=== PATIENT | female | born 1975 | race African-American/Black ===

== ENCOUNTER 2017-04-29 09:25 | Emergency (ER) | payer MEDICAID, OTHER ==
[~2017-04-29] VITALS: Ht 175.3 cm; Wt 79.5 kg
[~2017-04-29 09:25] MED LIST: ACCUMIS15; ASPI81TA45 PO; BLOOKIT5; CITA20TA4 PO; DEPO150I IM; ENSULIQ8; FERR324T4 PO; GLUCLIQ PO; GLUCOMETER XX; GLUCOMTESTSTRIPS XX; HYDR-3533 PO; HYDR1CAP30 PO; IBUP800 PO; INSULINSYR2 XX; LANTUS2P SQ; LISI-363 PO; MOBI15TA PO; MULT-65 PO; NOVORP2 SQ; PRAV20 PO; PROT40TA PO; SERO100T PO; XANA0.5T PO
[2017-04-29 09:41] VITALS: BP 149/104; PULSE 100; RESP 24; TEMP 98.3; O2SAT 100
[2017-04-29] MEDS ORDERED: LISI-515 PO (10:09)
[2017-04-29] MEDS ORDERED: VITA100036 PO (10:09)
[2017-04-29] MEDS ORDERED: PROT40TA PO (10:09)
[2017-04-29] MEDS ORDERED: LANTUS2P SQ (10:09)
[2017-04-29] MEDS ORDERED: GABA800T PO (10:09)
[2017-04-29] MEDS ORDERED: NOVORP2 SQ (10:09)
[2017-04-29] MEDS ORDERED: SERO100T PO (10:09)
[2017-04-29] MEDS ORDERED: LURA20TA PO (10:09)
[2017-04-29] MEDS ORDERED: SODIUM CHLOR 0.9% 1000 ML INJ 1,000 ML IV ONE ×2 (10:11→10:41)
[2017-04-29] MEDS ORDERED: INSULIN HUMAN REGULAR 1,000 UNITS/10 ML VIAL IV PUSH ONE (10:15)
[2017-04-29] MEDS ORDERED: ONDANSETRON HCL 4 MG/2 ML VIAL IV PUSH ONE (10:15)
[2017-04-29] MEDS ORDERED: SODIUM CHLORIDE 0.9% FLUSH 10 ML FLUSH IVF PRN (10:15)
[2017-04-29 10:26] LABS: BLOOD GAS VENOUS BASE EXCESS 2.4 mmol/L (-2-2); BLOOD GAS VENOUS HCO3 26 mmol/L (22-26); BLOOD GAS VENOUS O2 CONTENT 13.5 Vol % (9.0-17.0); BLOOD GAS VENOUS O2 HGB SAT 68 % (70-76); BLOOD GAS VENOUS PCO2 37 mmHg (44-48); BLOOD GAS VENOUS PO2 34 mmHg (35-40); BLOOD GAS VENOUS pH 7.46 (7.360-7.400); CRITICAL VALUE NO; DRAW SITE IV; FIO2 21 %; OXYGEN DEVICE RA; STAT YES; TEMP CORR TO 98.6
[2017-04-29 10:39] VITALS: O2SAT 98
[2017-04-29 10:46] LABS: AUTOMATED NEUTROPHIL # 7.1 TH/MM3 (1.8-7.7); BASOPHIL # 0.1 TH/MM3 (0-0.2); BASOPHIL % 0.6 % (0.0-2.0); EOSINOPHIL # 0.2 TH/MM3 (0-0.4); EOSINOPHIL % 1.5 % (0.0-4.0); HEMATOCRIT 44.3 % (35.0-46.0); HEMO FLAGS DIFF FINAL; LYMPH % 27.5 % (9.0-44.0); LYMPHOCYTE # 3.1 TH/MM3 (1.0-4.8); MEAN CELL VOLUME 92.1 FL (80.0-100.0); MEAN CORPUSCULAR HEMOGLOBIN 30.3 PG (27.0-34.0); NEUT % 62.4 % (16.0-70.0); PLATELET COUNT 371 TH/MM3 (150-450); RED BLOOD COUNT 4.81 MIL/MM3 (4.00-5.30); RED CELL DISTRIBUTION WIDTH 13.2 % (11.6-17.2); WHITE BLOOD COUNT 11.3 TH/MM3 (4.0-11.0)
[2017-04-29 10:58] LABS: ALT (GPT) 18 U/L (10-53); ANION GAP 15 MEQ/L (5-15); AST (GOT) 14 U/L (15-37); BICARBONATE 25.5 MEQ/L (21.0-32.0); BLOOD UREA NITROGEN 18 MG/DL (7-18); CHLORIDE 91 MEQ/L (98-107); GLOMERULAR FILTRATION RATE 66 ML/MIN (>89); SODIUM (NA) 131 MEQ/L (136-145)
[2017-04-29 11:00] LABS: ALKALINE PHOSPHATASE 101 U/L (45-117); BETA-HYDROXYBUTYRATE 3.85 MMOL/L (0.00-0.39); TOTAL BILIRUBIN ADULT 0.9 MG/DL (0.2-1.0)
--- NOTE | 2017-04-29 11:01 | PD ---
HPI . DKA Chief Complaint: Diabetic Time Seen by Provider: 10:11 Travel History International Travel<30 days: No Contact w/Intl Traveler<30days: No Traveled to known affect area: No History of Present Illness HPI This patient presents concerned that she is in DKA. She states that she has had DKA before. She reports the onset of nausea and vomiting about 4 days ago. She states that she is having 4-5 episodes per day. She feels very thirsty. Her sugars at home have been over 400. She is also reporting severe muscle spasms. This started a couple of days ago. She states that she has been compliant with her insulin. She states that her symptoms all started a day after she went out with her daughters to eat oysters and have a few drinks. She is concerned that her symptoms are secondary to her intake. PFSH Past Medical History Anemia: Yes Autoimmune Disease: Yes (RA IN LEFT HAND) Blood Disorders: No Bipolar Disorder: Yes Anxiety: Yes Depression: Yes Cancer: No Cardiovascular Problems: Yes High Cholesterol: Yes Chest Pain: Yes Diabetes: Yes Patient Takes Glucophage: No Diminished Hearing: No Endocrine: Yes Gastrointestinal Disorders: Yes GERD: Yes Genitourinary: No Headaches: Yes Hypertension: Yes Immune Disorder: Yes Musculoskeletal: No Neurologic: Yes Psychiatric: Yes (BIPOLAR AND SCHIZOPHRENIA) Reproductive: Yes Respiratory: No Immunizations Current: Yes Migraines: Yes Schizophrenia: Yes ?: Not LMP: 1 year ago : 3 Para: 3 Miscarriage: 3 Tubal Ligation: Yes Past Surgical History Gynecologic Surgery: Yes (TUBAL LIGATION) Neurologic Surgery: No Pacemaker: No Other Surgery: No Social History Alcohol Use: Yes (socially) Tobacco Use: No (1/2 PPWEEK) Substance Use: No (MARIJIUANA, POWDER COCAINE-DENIES) Allergies-Medications (Allergen,Severity, Reaction): Coded Allergies: codeine (Unverified Allergy, Mild, 04/29/17) Reported Meds & Prescriptions Reported Meds & Active Scripts Active Reported Vitamin D3 (Cholecalciferol) 1,000 Unit Cap 1,000 Units PO WEEKLY Latuda (Lurasidone) 20 Mg Tab 20 Mg PO DAILY Gabapentin 800 Mg Tab 800 Mg PO TID Protonix (Pantoprazole Sodium) 40 Mg Tab 40 Mg PO DAILY Lisinopril 20 Mg Tab 20 Mg PO DAILY Novolin R Inj (Insulin Human Regular) 1,000 Unit/10 Ml Vial 0 SQ DIRECTED Sliding Scale As Directed. Lantus Inj (Insulin Glargine) 1,000 Unit/10 Ml Vial 15 Units SQ HS Seroquel (Quetiapine Fumarate) 100 Mg Tab 150 Mg PO TID Review of Systems Except as stated in HPI: all other systems reviewed are Neg General / Constitutional: No: Fever, Chills Gastrointestinal: Positive: Nausea, Vomiting, Abdominal Pain, No: Diarrhea Musculoskeletal: Positive: Cramping Endocrine: Positive: Polydipsia Physical Exam Narrative GENERAL: This patient does look distressed. SKIN: warm/dry. No rashes. HEAD: Normocephalic. Atraumatic. EYES: Pupils equal and round. No scleral icterus. No injection or drainage. ENT: No nasal bleeding or discharge. Mucous membranes pink and moist. No scleral ketones. Arts sounds are normal. NECK: Trachea midline. Full range of motion without pain.. CARDIOVASCULAR: Regular rate and rhythm. RESPIRATORY: No accessory muscle use. Clear to auscultation. Breath sounds equal bilaterally. GASTROINTESTINAL: Abdomen soft. Nontender. Bowel sounds present. Nondistended. MUSCULOSKELETAL: No obvious deformities. NEUROLOGICAL: Awake and alert. No obvious cranial nerve deficits. Motor grossly within normal limits. Normal speech. PSYCHIATRIC: Appropriate mood and affect; insight and judgment normal. Data Data Last Documented VS Vital Signs Date Time Temp Pulse Resp B/P (MAP) Pulse Ox O2 Delivery O2 Flow Rate FiO2 04/29/17 10:39 98 Room Air 04/29/17 09:56 94 19 04/29/17 09:41 98.3 Orders Orders Electrocardiogram (04/29/17 10:11) Complete Blood Count With Diff (04/29/17 10:11) Comprehensive Metabolic Panel (04/29/17 10:11) Beta Hydroxybutyrate (Acetone) (04/29/17 10:11) Lactic Acid (04/29/17 10:11) Urinalysis - C+S If Indicated (04/29/17 10:11) Blood Gas Venous (Vbg) (04/29/17 10:11) Blood Glucose (04/29/17 10:11) Blood Glucose (04/29/17 11:11) Ecg Monitoring (04/29/17 10:11) Iv Access Insert/Monitor (04/29/17 10:11) Oximetry (04/29/17 10:11) NPO (04/29/17 10:11) Sodium Chlor 0.9% 1000 Ml Inj (Ns 1000 M (04/29/17 10:11) Sodium Chlor 0.9% 1000 Ml Inj (Ns 1000 M (04/29/17 10:41) Sodium Chloride 0.9% Flush (Ns Flush) (04/29/17 10:15) Insulin Human Regular Inj (Novolin R Inj (04/29/17 10:15) Ondansetron Inj (Zofran Inj) (04/29/17 10:15) Lorazepam Inj (Ativan Inj) (04/29/17 11:15) Urine Culture (04/29/17 10:50) Labs Laboratory Tests Test 04/29/17 10:12 04/29/17 10:20 04/29/17 10:50 Blood Gas Puncture Site IV Blood Gas Patient Temperature 98.6 Venous Blood pH 7.46 Venous Blood Partial Pressure CO2 37 mmHg Venous Blood Partial Pressure O2 34 mmHg Venous Blood HCO3 26 mmol/L Venous Blood Oxygen Saturation 68 % Venous Blood Oxygen Content 13.5 Vol % Venous Blood Base Excess 2.4 mmol/L Oxygen Delivery Device RA Blood Gas Inspired Oxygen 21 % White Blood Count 11.3 TH/MM3 Red Blood Count 4.81 MIL/MM3 Hemoglobin 14.6 GM/DL Hematocrit 44.3 % Mean Corpuscular Volume 92.1 FL Mean Corpuscular Hemoglobin 30.3 PG Mean Corpuscular Hemoglobin Concent 33.0 % Red Cell Distribution Width 13.2 % Platelet Count 371 TH/MM3 Mean Platelet Volume 8.9 FL Neutrophils (%) (Auto) 62.4 % Lymphocytes (%) (Auto) 27.5 % Monocytes (%) (Auto) 8.0 % Eosinophils (%) (Auto) 1.5 % Basophils (%) (Auto) 0.6 % Neutrophils # (Auto) 7.1 TH/MM3 Lymphocytes # (Auto) 3.1 TH/MM3 Monocytes # (Auto) 0.9 TH/MM3 Eosinophils # (Auto) 0.2 TH/MM3 Basophils # (Auto) 0.1 TH/MM3 CBC Comment DIFF FINAL Differential Comment Blood Urea Nitrogen 18 MG/DL Creatinine 1.09 MG/DL Random Glucose 292 MG/DL Total Protein 8.5 GM/DL Albumin 4.2 GM/DL Calcium Level 9.6 MG/DL Alkaline Phosphatase 101 U/L Aspartate Amino Transf (AST/SGOT) 14 U/L Alanine Aminotransferase (ALT/SGPT) 18 U/L Total Bilirubin 0.9 MG/DL Sodium Level 131 MEQ/L Potassium Level 3.0 MEQ/L Chloride Level 91 MEQ/L Carbon Dioxide Level 25.5 MEQ/L Anion Gap 15 MEQ/L Estimat Glomerular Filtration Rate 66 ML/MIN Lactic Acid Level 1.1 mmol/L B-Hydroxybutyrate 3.85 MMOL/L Urine Color YELLOW Urine Turbidity HAZY Urine pH 6.0 Urine Specific [place] 1.024 Urine Protein 30 mg/dL Urine Glucose (UA) 1000 mg/dL Urine Ketones 150 mg/dL Urine Occult Blood SMALL Urine Nitrite NEG Urine Bilirubin NEG Urine Urobilinogen 2.0 MG/DL Urine Leukocyte Esterase TRACE Urine RBC 6 /hpf Urine WBC 9 /hpf Urine WBC Clumps RARE Urine Squamous Epithelial Cells 4 /hpf Urine Hyaline Casts 3 /lpf Urine Mucus FEW /lpf Microscopic Urinalysis Comment CULTURE INDICATED MDM Medical Decision Making Medical Screen Exam Complete: Yes Emergency Medical Condition: Yes Medical Record Reviewed: Yes (this patient's past medical history includes hypertension, diabetes, anxiety/depression.) Differential Diagnosis Differential diagnosis includes but is not limited to viral gastritis, food poisoning, pancreatitis, pneumonia, hepatitis, acute coronary syndrome, Narrative Course This patient presents worried that she is in DKA. Her fingerstick blood sugar here is in the 280s. She does not smell of ketones. She is being treated with IV fluids and Zofran. I had initially ordered insulin but will cancel that order as her fingerstick blood sugar here is not high. She is requesting medication for the muscle spasms. She will be given Ativan. CBC & BMP Diagram 04/29/17 10:20 Total Protein 8.5 H, Albumin 4.2, Calcium Level 9.6, Alkaline Phosphatase 101, Aspartate Amino Transf (AST/SGOT) 14 L, Alanine Aminotransferase (ALT/SGPT) 18, Total Bilirubin 0.9 VBG: pH 7.46, pCO2 37, pO2 34, HCO3 26--- so this patient is not in DKA. Lactic acid is 1.1. B-hydroxybutyrate 3.85. UA is negative for infection. She has large glucose as well as ketones. She is now resting comfortably. She is stable for discharge to home. Diagnosis Primary Impression: Nausea and vomiting Qualified Codes: R11.2 - Nausea with vomiting, unspecified Additional Impressions: Muscle spasm Diabetes mellitus type 2, insulin dependent Patient Instructions: Acute Nausea and Vomiting (DC), General Instructions Med/Other Pt SpecificInfo: No Change to Meds Disposition: 01 DISCHARGE HOME Condition: Stable Mita Mcelroy MD Apr 29, 2017 11:01
[2017-04-29] MEDS ORDERED: LORazepam 2 MG/ML VIAL IV PUSH ONE (11:15)
[2017-04-29 11:19] LABS: BLOOD, URINE SMALL (NEG); GLUCOSE,URINE 1000 mg/dL (NEG); HYALINE CAST, URINE 3 /lpf (RARE); KETONE, URINE 150 mg/dL (NEG); MUCUS URINE FEW /lpf (OCC); NITRITE,URINE NEG (NEG); SQUAMOUS EPITHELIAL CELL URINE 4 /hpf (0-5); URINE COLOR YELLOW (YELLW/STRAW)
[2017-04-29 11:26] LABS: COMMENT (UR) CULTURE INDICATED; CULTURE IF INDICATED CULTURE INDICATED
[2017-04-29 12:52] VITALS: BP 164/90
--- NOTE | 2017-04-29 14:12 | EKG ---
Date Performed: 04/29/2017 Time Performed: 10:46:38 PTAGE: 41 years EKG: Sinus rhythm NONSPECIFIC T-WAVE ABNORMALITY BORDERLINE ECG PREVIOUS TRACING : 04/16/2013 01.13 Compared to previous tracing, nonspecific T wave abnormalit y is now present. DOCTOR: Marco Joaquin Interpretating Date/Time 04/29/2017 14:11:00
== END 2017-04-29 12:53 | disposition home or self-care (01) ==
LOC: NEPC 09:38
DX: R11.2 Nausea with vomiting, unspecified (principal); M62.838 Other muscle spasm; R82.71 Bacteriuria; E11.9 Type 2 diabetes mellitus without complications; Z79.4 Long term (current) use of insulin
CPT/HCPCS: 80053; 81001; 82010; 82805; 83605; 85025; 87086; 93005; 96361; 96374; 96375; 99284; J2060; J2405; J7030